=== PATIENT | female | born 1980 | race African-American/Black ===

== ENCOUNTER 2020-05-31 11:46 | Outpatient (CLI) | payer OTHER, SELFPAY ==
--- NOTE | ~2020-05-31 | CT_ITS ---
EXAMINATION: CT sinus wo con DATE: 05/31/2020 12:00 INDICATION: Chronic sinusitis. Dizziness. TECHNIQUE: Computed tomography (CT) of the paranasal sinuses was performed without intravenous contra st. The dose-length product was 325.13 mGy-cm. Automated exposure control and iterative reconstructio n technique were employed. COMPARISON: No prior studies for comparison. FINDINGS: There is complete opacification of the right maxillary sinus with occlusion of the ostiomea devaughn unit. No significant nasal septal deviation. Mild mucosal thickening of the right frontal and ant erior ethmoid air cells. No mastoids are pneumatized. There is defect involving the occipital bone, p ossibly surgical craniectomy defect. Correlate clinically. IMPRESSION: 1. Moderate sinusitis primarily involving the right maxillary sinus with occlusion of the right ostio meatal unit. Reviewed, dictated and finalized at location A. IMPRESSION: 1. Moderate sinusitis primarily involving the right maxillary sinus with occlus ion of the right ostiomeatal unit.
== END 2020-05-31 11:47 ==
PROVIDERS: Visit Provider Otolaryngology
DX: R42 Dizziness and giddiness (principal); J32.4 Chronic pansinusitis; J32.9 Chronic sinusitis, unspecified
CPT/HCPCS: 70486

== ENCOUNTER 2021-10-16 12:54 | Inpatient (IN) | payer OTHER, SELFPAY ==
--- NOTE | ~2021-10-16 | CT_ITS ---
EXAMINATION: CTA chest PE protocol DATE: 10/17/2021 14:59 INDICATION: Tachycardia. TECHNIQUE: Computed tomography angiography (CTA) of the chest was performed with 100 mL Omnipaque-350 intravenous contrast timed to evaluate the pulmonary arteries. Coronal maximum intensity projection 3D-reconstructions were created by the technologist. Automated exposure control and iterative reconst ruction technique were employed. The dose-length product was 256.17 mGy-cm. COMPARISON: None. FINDINGS: The lungs demonstrate mild atelectasis with a dependent predominance. No pleural effusion. Cardiomegaly is noted. No pericardial effusion. There is no pulmonary embolus. The gallbladder is nor mal in size. High attenuation material in the gallbladder may be sludge or stones. There is mild thor acic spondylosis. IMPRESSION: 1. No pulmonary embolus. 2. Cardiomegaly. Reviewed, dictated and finalized at location E. ICATOR FOAM RUBBER
--- NOTE | ~2021-10-16 | CT_ITS ---
EXAMINATION: CTA brain carotid EXAM DATE: 10/16/2021 18:55 INDICATION: headache, r/o aneurysm . TECHNIQUE: Spiral CTA of the carotid arteries was performed with intravenous injection 100 cc of Om nipaque 350. Axial, coronal, sagittal reformatted images reviewed. Additional reformatted images cre ated on dedicated 3-D workstation. NASCET comparable standard used to assess the degree of arterial stenosis. Spiral CT angiogram cerebral arteries performed with the same intravenous injection of con trast. Source images of the brain CTA transferred to dedicated workstation for 3-D rotational image c reation. Coronal, sagittal maximum intensity pixel images also reviewed. The dose-length product (D LP) for this examination was 1014.97 mGy-cm. The exposure was tailored according to patient size, a nd iterative reconstruction (ASIR) was used as additional dose reduction technique. Correlation is ma de to noncontrast head CT same date.. FINDINGS: No carotid plaque, 0% stenosis bilaterally. Left vertebral artery is dominant. There is no carotid or vertebral basilar arterial dissection or fibromuscular dysplasia. There are no cerebral a rtery aneurysms. There is symmetric cerebral artery arborization. The sagittal, transverse and sigmoi d sinuses enhance normally, no venous sinus thrombosis. Internal cerebral veins also enhance normally . Incidental Findings: Old small right subinsular, left cerebellar infarctions. Left suboccipital crani ectomy. IMPRESSION: 1. No acute carotid or intracranial findings. No aneurysm. 2. Bilateral carotid 0% stenosis. Reviewed, dictated and finalized at location . ROAD POLICE OFFICER
--- NOTE | ~2021-10-16 | MR_ITS ---
EXAMINATION: MR brain/brain stem wo con EXAM DATE: 10/17/2021 13:03 INDICATION: R/o CVA, Hx ischemic CVA tPA caused hemorrhagic. TECHNIQUE: Magnetic resonance imaging (MRI) of the brain/brain stem obtained without contrast. Stephanie al T1, axial diffusion, gradient echo (T2*), T1, T2, FLAIR sequences obtained. Correlation is made t o CT scans from yesterday. FINDINGS: There is small region of restricted diffusion in the right cerebellar hemisphere measuring about 5 x 10 mm, consistent with acute infarction. There is small to moderate-sized region of left ce rebellar encephalomalacia with overlying craniectomy defect. Other much smaller left cerebellar infar ctions. There is old small to moderate-sized right subinsular infarction. There is no acute hemorrhage seen on the T2*, a susceptibility sensitive sequence. Flow voids are see n in the cerebral arteries on the T2 weighted sequences consistent with their expected patency. Left vertebral artery is dominant. No obstructive hydrocephalus. There is moderate right maxillary sinus m ucoperiosteal thickening. IMPRESSION: 1. Small right cerebellar signal abnormality most likely acute infarction. 2. Left suboccipital craniectomy with underlying left cerebellar encephalomalacia. 3. Old infarctions. Reviewed, dictated and finalized at location B. BRIDGE OPERATOR IMPRESSION: 1. Small right cerebellar signal abnormality most likely acute infarction. 2. Left suboccipital craniectomy with underlying left cerebellar encephalomala kimber. 3. Old infarctions.
--- NOTE | ~2021-10-16 | CT_ITS ---
EXAMINATION: CT brain wo con EXAM DATE: 10/16/2021 17:10 INDICATION: neuro symptoms, prev CVA . TECHNIQUE: Spiral CT of the head was performed without contrast. Axial, coronal and sagittal images were reviewed. The dose-length product (DLP) for this examination was 605.33 mGy-cm. The exposure w as tailored according to patient size, and iterative reconstruction (ASIR) was used as additional dos e reduction technique. There is no prior study for comparison. FINDINGS: Small old left cerebellar infarction. Small old right subinsular infarction. There is no ac [place] intraparenchymal hemorrhage. No evidence of intraparenchymal brain mass lesion. No evidence of acute infarction. There is no mass effect or midline shift. The ventricles are normal in size. The re are no extra-axial collections. There are no acute calvarial fractures. The orbits are unremarkab le. Soft tissue is unremarkable. The visualized sinuses and mastoid air cells are well aerated. IMPRESSION: 1. Small old left cerebellar and right subinsular infarctions. 2. No acute findings. Reviewed, dictated and finalized at location G. AL MAKER
--- NOTE | ~2021-10-16 | US_ITS ---
EXAMINATION: US venous doppler [facility] DATE: 10/17/2021 17:34 INDICATION: Tachycardia. TECHNIQUE: Grayscale ultrasound images without and with compression and Doppler ultrasound images of the bilateral lower extremity veins were obtained. COMPARISON: None. FINDINGS: The visualized portions of right common femoral vein, profunda (deep) femoral vein, femoral vein, pop liteal vein, peroneal veins, posterior tibial veins, and greater saphenous vein outflow are patent. The visualized portions of left common femoral vein, profunda femoral vein, femoral vein, popliteal v ein, peroneal veins, posterior tibial veins, and greater saphenous vein outflow are patent. IMPRESSION: 1. No deep venous thrombosis. Reviewed, dictated and finalized at location E. AGE ENGINEER
[2021-10-16 12:59] VITALS: BP 131/92; PULSE 96; RESP 16; O2SAT 100
[2021-10-16 16:01] VITALS: BP 133/90; PULSE 100; RESP 17; TEMP 36.6; O2SAT 97
--- NOTE | 2021-10-16 16:38 | ECG_ITS ---
Measurements Intervals [place] Rate: 98 P: 55 MS: 165 QRS: 11 QRSD: 93 T: 14 QT: 325 QTc: 416 Interpretive Statements SINUS RHYTHM INCOMPLETE RIGHT BUNDLE BRANCH BLOCK LOW QRS VOLTAGE IN PRECORDIAL LEADS BORDERLINE T WAVE ABNORMALITY- INFERIOR LEADS BORDERLINE ECG Electronically Signed On 10-17-2021 16:42:19 BOAT TESTER by Samuel Stover D.O.
--- NOTE | 2021-10-16 16:49 | PC.NURSE ---
Pt notes CVA history 10 years old. Gets frequent migraines since then but normally is resolved with medication. She never has the ringing in her ears or feeling faint. Pt noted her right arm started moving on its own as she was being brought back to triage.
[2021-10-16 16:59] LABS: Basophils Percent Auto 0.6 % (0.2-1.2); Eosinophils Absolute Auto 0.3 K/mm3 (0-0.3); Hematocrit 35.3 % (37.0-47.0); Immature Granulocyte Absolute 0.01 K/mm3 (0.00-0.031); Immature Granulocyte Percent A 0.2 % (0-0.5); Lymphocytes Absolute Auto 1.49 K/mm3 (0.9-3.2); Lymphocytes Percent Auto 22.7 % (18.3-44.2); Mean Corpuscular HGB Conc 31.2 g/dl (32-36); Mean Corpuscular Hemoglobin 25.7 pg (26-34); Mean Corpuscular Volume 82.5 fl (80-100); Mean Platelet Volume 9.2 fl (7.4-10.4); Monocytes Absolute Auto 0.4 K/mm3 (0.1-0.6); Monocytes Percent Auto 6.3 % (2.6-8.5); Neutrophils Absolute Auto 4.3 K/mm3 (1.3-6.7); Neutrophils Percent Auto 66.2 % (45.5-73.1); Platelet Count Result 242 k/mm3 (150-375); Red Blood Count 4.28 M/mm3 (4.2-5.4); Red Cell Distribution Width 16.5 % (11.5-14.5); White Blood Count 6.6 K/mm3 (4.5-10.0)
[2021-10-16 17:08] LABS: Alanine Aminotransferase 12 U/L (4-35); Alkaline Phosphatase 74 U/L (38-126); Anion Gap 7 mmol/L (8-16); Aspartate Amino Transferase 21 U/L (14-36); Bilirubin,Total 0.5 mg/dL (0.2-1.3); Blood Urea Nitrogen 6 mg/dL (7-17); Calcium 8.9 mg/dL (8.4-10.2); Carbon Dioxide 25 mmol/L (22-30); Chloride 104 mmol/L (98-107); Estimated CRCL calculation 104 ml/min; Estimated Glomerular Filt Rate > 60; Glucose 93 mg/dL (65-110); Potassium 3.4 mmol/L (3.4-5.0); Sodium 136 mmol/L (137-145)
[2021-10-16] MEDS: METOCLOPRAMIDE HCL INJ 10 MG/2 ML VIAL IV PUSH (17:34)
[2021-10-16] MEDS: SODIUM CHLORIDE 0.9% IV 1,000 ML 999 ML IV CONT (17:34)
[2021-10-16] MEDS: KETOROLAC 30 MG/ML VIAL (*BKC) IV PUSH (17:34)
[2021-10-16] MEDS: diphenhydrAMINE HCl INJ 50 MG/ML VIAL 25 MG IV PUSH (17:34)
--- NOTE | 2021-10-16 17:51 | ED.GENADULT ---
HPI - General Adult General Chief complaint: Headache Stated complaint: HEADACHE Time Seen by Provider: 10/16/21 16:47 Source: patient History of Present Illness HPI narrative: Patient is a 41 y/o female complaining right sided headache starting earlier today. She descries her pain sharp and rates it as 5/10. There is no alleviating or exacerbating factor. She has no neck pain, vomiting or fever. She has no focal weakness or numbness. She had some uncontrollable shaking or right arm today. She also hears ringing in ear. Of note, she had brain surgery for hemorrhagic transformation of stroke following tPA about 10 years ago. Related Data Home Medications Medication Instructions Recorded Confirmed amitriptyline 25 mg PO HS 10/16/21 10/16/21 apixaban [Eliquis] 5 mg PO DAILY 10/16/21 10/16/21 cetirizine 10 mg PO DAILY 10/16/21 10/16/21 diphenhydramine HCl [Banophen] 25 mg PO PRN PRN 10/16/21 10/16/21 fluticasone propionate 1 spray INTRANASAL PRN PRN 10/16/21 10/16/21 prochlorperazine maleate 10 mg PO PRN PRN 10/16/21 10/16/21 ubrogepant [Ubrelvy] 50 mg PO PRN PRN 10/16/21 10/16/21 Allergies Allergy/AdvReac Type Severity Reaction Status Date / Time atorvastatin Allergy Unknown Verified 10/16/21 21:18 tramadol Allergy Unknown Verified 10/16/21 21:18 Review of Systems Constitutional: Constitutional: Denies chills, Denies fever(s), Reports headache(s) and Denies weakness Eyes: Eyes: Denies blurry vision ENT: Reports headache(s), Denies neck pain and Reports tinnitus Cardiovascular: Cardiovascular: Denies chest pain and Denies dyspnea Respiratory: Respiratory: Denies cough and Denies dyspnea Gastrointestinal: Gastrointestinal: Denies abdominal pain, Denies diarrhea, Denies nausea and Denies vomiting Genitourinary: Genitourinary: Denies hematuria and Denies dysuria Musculoskeletal: Musculoskeletal: Denies back pain and Denies neck pain Neurologic: Reports headache(s), Reports seizure-like activity and Denies weakness PMF Past Medical History Medical History Asthma Chronic anemia Depression with anxiety Ischemic stroke (2011) At age 31 attributed to PFO (loop recorder ruled out cardiac dysrhythmia) status post tPA with hemorrhagic conversion requiring craniotomy. Migraine Polycystic ovarian syndrome Pulmonary embolism Surgical History Surgical History History of craniotomy (2011) History of dilation and curettage History of hernia repair History of loop recorder Status post explantation in 2019. Family History Family History Grandparent Cancer Other Breast cancer Mother Diabetes mellitus Sibling High cholesterol Father High cholesterol Social History Social History Social History: Surrogate decision maker: Mary Lee, mother. Code status: Full code. Smoking status: Never smoker Alcohol intake: never Substance use: never Additional living arrangements comments: The patient lives in [place] Exam Const: General: no acute distress and well developed Orientation/consciousness: oriented to person, oriented to place, oriented to time and patient oriented x3 HENMT: Head: normocephalic Ears: external ears normal General nose exam: Normal external nose present Eyes: General: appearance normal, both eyes and all related structures Conjunctivae: conjunctivae normal Neck: Neck: normal visual inspection and full ROM Chest: Chest palpation & inspection: normal inspection of the chest and no tenderness Resp: Effort & Inspection: normal respiratory effort Auscultation: clear to auscultation bilaterally Cardio: Rate: regular rate Rhythm: regular rhythm GI: GI Palp: No abdominal tenderness and Yes Soft to palpation Skin: General skin exam: normal color and turgor normal Ne
--- NOTE | 2021-10-16 18:30 | PM.IMHP ---
H&P: HPI History of Present Illness Date/Time: 10/16/21 18:30 Chief Complaint: Headache and ringing in ear. Narrative: This is a pleasant 41-year-old female with history of migraines, ischemic stroke status post tPA with hemorrhagic conversion requiring craniotomy, patent foramen ovale, and pulmonary embolism who presented to the emergency department for evaluation of headache and ringing in ear. While in the shower this morning she developed a right sided headache, not necessarily unusual for her given her history of migraines. The headache was not bad enough for her to take her abortive medication and she went to work. At around 08:00 her headache became worse and she developed tinnitus in the left ear with lightheadedness and dizziness. She then tried to use her phone to text someone and she had a difficult time entering her password, as though her fingers were not doing what she wanted them to do. On arrival to the emergency department she then had a brief episode of uncontrollable tremors in her right arm. The tremors were self-limiting and have not recurred and she has never had similar symptoms. She still has the tinnitus and a mild headache but is improved after receiving a cocktail of ketorolac, metoclopramide, and diphenhydramine on arrival to the ER. She denies vertigo, focal weakness, paresthesias, visual changes, sinus congestion, fever, chills, sweats, facial droop, dysarthria, dysphagia, chest pain, pleuritic pain, palpitation, nausea, and vomiting. She has not had any recent illnesses or head trauma. No history of seizure. Review of Systems Review of Systems: Twelve systems were reviewed and are negative except for as per HPI. [facility] Past Medical History Medical History (Updated 10/16/21 @ 23:22 by Claudine Olson PA-C) Asthma Chronic anemia Depression with anxiety Ischemic stroke (2011) At age 31 attributed to PFO (loop recorder ruled out cardiac dysrhythmia) status post tPA with hemorrhagic conversion requiring craniotomy. Migraine Polycystic ovarian syndrome Pulmonary embolism Surgical History Surgical History History of craniotomy (2011) History of dilation and curettage History of hernia repair History of loop recorder Status post explantation in 2019. Family History Family History Grandparent Cancer Other Breast cancer Mother Diabetes mellitus Sibling High cholesterol Father High cholesterol Social History Social History (Updated 10/16/21 @ 23:19 by Claudine Olson PA-C) Social History: Surrogate decision maker: Mary Lee, mother. Code status: Full code. Smoking status: Never smoker Alcohol intake: never Substance use: never Additional living arrangements comments: The patient lives in [facility] Medications and Allergies Home Medications Medication Instructions Recorded Confirmed Type amitriptyline 25 mg PO HS 10/16/21 10/16/21 History apixaban [Eliquis] 5 mg PO DAILY 10/16/21 10/16/21 History cetirizine 10 mg PO DAILY 10/16/21 10/16/21 History diphenhydramine HCl [Banophen] 25 mg PO PRN PRN 10/16/21 10/16/21 History fluticasone propionate 1 spray INTRANASAL PRN PRN 10/16/21 10/16/21 History prochlorperazine maleate 10 mg PO PRN PRN 10/16/21 10/16/21 History ubrogepant [Ubrelvy] 50 mg PO PRN PRN 10/16/21 10/16/21 History Allergies Allergy/AdvReac Type Severity Reaction Status Date / Time atorvastatin Allergy Unknown Verified 10/16/21 21:18 tramadol Allergy Unknown Verified 10/16/21 21:18 Vital Signs Vital Signs - 24 hr 10/16/21 12:59 10/16/21 16:01 10/16/21 20:46 Temperature 97.9 F 98.0 F Pulse Rate 96 100 94 Respiratory Rate 16 17 17 Blood Pressure 131/92 H 133/90 126/93 H Pulse Oximetry 100 97 97 10/16/21 21:13 Temperature 97.5 F L Pulse Rate 87 Respiratory Rate 18 Blood Pressure 111/71 Pulse Oximetry 99
[2021-10-16 19:38] LABS: SARS-CoV-2 RNA PCR Negative
[2021-10-16 20:46] VITALS: BP 126/93; PULSE 94; RESP 17; TEMP 36.7; O2SAT 97
--- NOTE | 2021-10-16 21:05 | ADMGEN ---
This patient, Mary Lozano, was admitted to Medical Room 348-01. Patient/family oriented to hospital policies and general routines including ID bracelet, bed and alarms, visiting hours, pain management, procedures, bathroom and other care routines, personal items, smoking policy, room service/diet, and visiting hours. Information on how to activate the Rapid Response Team has been discussed. Patient/Family are encouraged to report perceived risks to care and to ask questions if they do not understand what they are told or what they should do.
[2021-10-16 21:13] VITALS: BP 111/71; PULSE 87; RESP 18; TEMP 36.4; O2SAT 99; BMI 29.3
[2021-10-17] VITALS (15 sets, daily range): BP systolic 119–138; BP diastolic 74–91; PULSE 79–108; RESP 14–19; TEMP 36.4; O2SAT 97–100
[2021-10-17] MEDS: AMITRIPTYLINE HCL 25 MG TABLET PO ×2 (00:05→20:09)
[2021-10-17 01:58] LABS: Magnesium 1.9 mg/dL (1.6-2.3)
[2021-10-17 02:28] LABS: Iron 37 ug/dL (37-170)
[2021-10-17 02:37] LABS: Percent Iron Saturation 11 % (20-50)
[2021-10-17 03:05] LABS: Folic Acid 8.4 ng/mL (2.76->20)
[2021-10-17] MEDS: APIXABAN 5 MG TABLET PO ×2 (09:16→20:08)
[2021-10-17] MEDS: FLUTICASONE PROPIONATE 0.05% NA SPR 16 GM BTL (*BKC) 1 SPRAY NASAL ×2 (09:16→20:07)
[2021-10-17] MEDS: LORATADINE 10 MG TABLET PO (09:16)
--- NOTE | 2021-10-17 09:37 | WPDNEUROLOGY ---
Neurology EEG Report General Information Date of Study: 10/17/21 TEST eeg DIAGNOSIS Seizures CONDITION OF RECORDING awake and drowsy EEG NUMBER [id number] CLINICAL HISTORY patient came in to emergency room yesterday for migraine headaches and while in the emergency room her right upper extremity started shaking which lasted for about 2 minutes. Has no history of seizures in the past. EEG DESCRIPTION Whole record consists of low-voltage 15 to 21 hertz per 2nd beta during wakefulness and drowsiness with intermittent eye movement artifacts. Hyperventilation not done. Photic stimulation not done. Non paroxysmal. Nonfocal. Nonlateralizing. IMPRESSION No significant abnormalities noted in this low voltage fast record ,clinical correlation recommended
[2021-10-17 10:03] LABS: Hematocrit 32.2 % (37.0-47.0); Hemoglobin 10.1 g/dL (12.0-15.0)
[2021-10-17 10:20] LABS: Anion Gap 4 mmol/L (8-16); Blood Urea Nitrogen 8 mg/dL (7-17); Calcium 8.1 mg/dL (8.4-10.2); Carbon Dioxide 28 mmol/L (22-30); Chloride 103 mmol/L (98-107); Estimated CRCL calculation 105 ml/min; Estimated Glomerular Filt Rate > 60; Glucose 139 mg/dL (65-110); Magnesium 1.8 mg/dL (1.6-2.3); Potassium 3.5 mmol/L (3.4-5.0); Sodium 135 mmol/L (137-145)
--- NOTE | 2021-10-17 10:42 | WPDNEURCNPN ---
Assessment and Plan Additional Plan migraine with rather complicated history in the past, all the studies up until now are negative for the new process MRI of the brain is awake Consult date: 10/17/21 HPI: Mary Lozano is a 41 year old female admitted to the hospital for the complaints of headaches with ringing in her ears in addition to the ongoing history of 1. Migraine 2. Ischemic stroke in the past requiring tPA with subsequent hemorrhagic conversion requiring craniotomy,3 patent foramen ovale,4 pulmonary embolism. As per the information available while in the shower in the morning she developed right-sided headache not necessarily unusual for her given history of migraine she did not take any abortive medication but by 8:00 a.m. the headaches became worse she developed tinnitus in the left ear along with the dizziness and lightheadedness and when she was in the emergency room she had uncontrollable tremors of the right upper extremity for very brief period, she continued to complain of tinnitus and headache requiring the cocktail of medications she does have ongoing history of bronchial asthma, chronic anemia as well and polycystic ovarian syndrome she is a never smoker or drinker and her outpatient medications include Eliquis 5 mg daily in addition to amitriptyline 25 mg daily and ubrelvy 50 mg p.r.n. for the migraine headaches, evaluation includes the negative CT scan of the head except the small old left cerebellar and right sub insular infarction, negative CT of the head with bilateral 0% stenosis of the carotid and also no aneurysm and routine lab normal including the SARS-CoV-2 it Review of Systems Review of Systems: All systems reviewed & are unremarkable except as noted in HPI and below PMFSH Past Medical History Medical History Asthma Chronic anemia Depression with anxiety Ischemic stroke (2011) At age 31 attributed to PFO (loop recorder ruled out cardiac dysrhythmia) status post tPA with hemorrhagic conversion requiring craniotomy. Migraine Polycystic ovarian syndrome Pulmonary embolism Surgical History Surgical History History of craniotomy (2011) History of dilation and curettage History of hernia repair History of loop recorder Status post explantation in 2019. Family History Family History Grandparent Cancer Other Breast cancer Mother Diabetes mellitus Sibling High cholesterol Father High cholesterol Social History Social History Social History: Surrogate decision maker: Mary Lee, mother. Code status: Full code. Smoking status: Never smoker Alcohol intake: never Substance use: never Additional living arrangements comments: The patient lives in [facility] Medications and Allergies Home Medications Medication Instructions Recorded Confirmed Type amitriptyline 25 mg PO HS 10/16/21 10/16/21 History apixaban [Eliquis] 5 mg PO DAILY 10/16/21 10/16/21 History cetirizine 10 mg PO DAILY 10/16/21 10/16/21 History diphenhydramine HCl [Banophen] 25 mg PO PRN PRN 10/16/21 10/16/21 History fluticasone propionate 1 spray INTRANASAL PRN PRN 10/16/21 10/16/21 History prochlorperazine maleate 10 mg PO PRN PRN 10/16/21 10/16/21 History ubrogepant [Ubrelvy] 50 mg PO PRN PRN 10/16/21 10/16/21 History Allergies Allergy/AdvReac Type Severity Reaction Status Date / Time atorvastatin Allergy Unknown Verified 10/16/21 21:18 tramadol Allergy Unknown Verified 10/16/21 21:18 Vital Signs Vital Signs - 24 hr 10/16/21 12:59 10/16/21 16:01 10/16/21 20:46 Temperature 36.6 C 36.7 C Pulse Rate 96 100 94 Respiratory Rate 16 17 17 Blood Pressure 131/92 H 133/90 126/93 H Pulse Oximetry 100 97 97 10/16/21 21:13 10/17/21 00:00 10/17/21 04:00 Temperature 36.4 C L Pulse Rate 87
[2021-10-17] MEDS: POTASSIUM CHLORIDE 20 MEQ TABLET 40 MEQ PO (13:12)
--- NOTE | 2021-10-17 13:17 | PM.IMPN ---
Progress Note: A&P Assessment and Plan (1) Migraine headache: Code(s): G43.909 - Migraine, unspecified, not intractable, without status migrainosus Status: Acute Assessment and Plan: Symptoms may very well be related to an atypical migraine. Headache is improved with migraine cocktail as detailed in HPI. She denies anymore migraine symptoms or tinnitis at this time. She was concerned because she never had similar symptoms before. She sees a neurologist at [facility] for her stroke and migraine history. She last did a virtual visit about 1 month ago and no medication adjustments were made at that time. EEG was completed for right arm tremor in ER which showed No significant abnormalities noted in this low voltage fast record, clinical correlation recommended. MRI will be obtained given her history of ischemic stroke and her not being complaint with her home medications even her anticoagulation, Eliquis. Also, concerned about her sinus tachycardia. Patient states she was up walking with therapy she felt symptomatic with lightheadedness, faint and abnormality with her heart. She denied fluttering or palpations. On Tele she was found to have what appeared to be Sinus Tachycardia up to 150 bpm. Since she has been noncompliant with her Eliquis, will order Stat D-dimer. If normal she does not have PE and will then complete further work up with an Echocardiogram and Cardiology consultation to rule out acute arrhythmia and structural abnormality to her heart. If her D-dimer is positive then will get CTA Chest [address] last [address] with contrast was completed (10/16/21 at 1855) to rule out acute PE and get an echocardiogram to look further at her heart. Will order Orthostatic vital signs. Told nurse if she becomes tachycardic again to try and get a STAT EKG for better visualization of her heart rhythm. Continue monitoring. (2) Sinus tachycardia: Code(s): R00.0 - Tachycardia, unspecified Status: Acute Assessment and Plan: See above. (3) Limb tremor: Code(s): R25.1 - Tremor, unspecified Status: Acute Assessment and Plan: Patient reports uncontrolled right upper extremity tremor which was self-limiting. She states with her last migraine about 3-4 weeks ago she had full body tremors for a short amount of time and was self limiting Neurology evaluated and did not have any concerns at this time and EEG was negative for seizure activity. Will continue monitoring for more episodes. May talk to Neurology to see if there is a possibility of a partial seizure as the cause and if she would need any medications. (4) Left-sided tinnitus: Code(s): H93.12 - Tinnitus, left ear Status: Acute Assessment and Plan: May very well be related to migraine headache given rapid onset. Resolved at this time. Getting MRI to rule out acute CVA as cause Continue monitoring (5) Chronic anemia: Code(s): D64.9 - Anemia, unspecified Status: Acute Assessment and Plan: Reports chronic anemia and being day #2 of her menstrual cycle. Normocytic anemia with Hgb 10/Hct 32% Iron panel shows slightly low % Saturation and low normal ferritin 16 could be due to acute menstrual cycle bleeding. May just recheck CBC when the patient is not on her menstrual cycle and have her follow up with PCP. Normal Folate, B12 and TSH. Continue monitoring. Transfuse if <7. Time Spent With Patient Time with patient: 25 - 35 minutes Subjective Date/time seen: 10/17/21 13:17 Interval history: Date of Service 10/17/21: Patient states she is feeling better right now because she is laying in bed. She was up earlier and she felt an abnormality with her heart, lightheadedness and when she sat down to rest it improved. She reports improvement of her migraine and tinnitis at this time. She had some tremors in the ER to her right side and reported during her last migraine she had whole body tylor
[2021-10-17 13:40] LABS: D Dimer 2.46 ug/mL (<0.48)
[2021-10-17] MEDS: ACETAMINOPHEN 325 MG TABLET 650 MG PO ×2 (14:13→20:14)
[2021-10-17] MEDS: diphenhydrAMINE HCl CAP 25 MG CAPSULE PO (20:18)
[2021-10-17] MEDS: PROCHLORPERAZINE MALEATE 5 MG TABLET 10 MG PO (20:18)
[2021-10-18] VITALS (12 sets, daily range): BP systolic 106–133; BP diastolic 66–82; PULSE 82–109; RESP 18–19; TEMP 36.1–36.4; O2SAT 98–99
--- NOTE | 2021-10-18 | ECHO_ITS ---
Patient Info Name: Mary Lozano Age: 41 years : 1980 Gender: Female Ht: 64 in Wt: 170 lbs BSA: 1.89 m2 HR: 98 bpm BP: 106 / 66 mmHg Heart Rhythm: Sinus Rhythm Technical Quality: Good Exam Date: 10/18/2021 10:22 AM Exam Location: [facility] Patient Status: Outpatient Admit Date: 10/16/2021 Staff Ordering Physician: Alyssa Alcazar PA-C Elementary Education Tutor: Esteban Ibarra RDCS, RT Attending Provider: Cecilia Farnsworth PA-C Referring Physician: Inge HEATON; Exam Type: CA echo doppler w bubble study Study Info Indications R00.0 - Tachycardia, unspecified Complete two-dimensional, color flow and Doppler transthoracic echocardiogram is performed with agitated saline. Strain analysis performed. Contrast/Agitated Saline Contrast/Ag. Saline: Agitated Saline Amount: 20.00 ml Existing IV Access: Yes IV Access Condition: patent with no signs of infiltration Summary 1. Complete two-dimensional, color flow and Doppler transthoracic echocardiogram is performed with agitated saline. 2. Strain analysis performed. 3. Left ventricular systolic function is normal, estimated at 60-65%. 4. There is mildly increased left ventricular wall thickness. 5. The left ventricular diastolic function is normal. 6. Global longitudinal strain is normal at -18 %. 7. Left atrial chamber dimension is mildly enlarged. 8. PFO vs. small ASD visualized by color flow and agitated saline imaging. 9. There is mild mitral valve regurgitation. 10. There is mild tricuspid valve regurgitation. 11. There is mild pulmonic regurgitation. 12. Left ventricular chamber dimension is normal. Left Ventricle Left ventricular chamber dimension is normal. Left ventricular systolic function is normal, estimated at 60-65%. There is mildly increased left ventricular wall thickness. The left ventricular diastolic function is normal. Global longitudinal strain is normal at -18 %. Right Ventricle Right ventricular chamber dimension is normal. Right ventricular systolic function is normal. Left Atria Left atrial chamber dimension is mildly enlarged. Right Atria Right atrial chamber dimension is normal. Atrial Septum PFO vs. small ASD visualized by color flow and agitated saline imaging. Aortic Valve The aortic valve is trileaflet. There is mild aortic valve sclerosis. There is no aortic valve stenosis. There is trace aortic valve regurgitation. Pulmonic Valve The pulmonic valve is normal. There is no pulmonic valve stenosis. There is mild pulmonic regurgitation. Mitral Valve The mitral valve has normal leaflets. There is no mitral valve stenosis. There is mild mitral valve regurgitation. Tricuspid Valve The tricuspid valve leaflets are normal. There is no significant tricuspid valve stenosis. There is mild tricuspid valve regurgitation. Pericardium/Pleural The pericardium appears normal. There is trivial pericardial effusion. Inferior Vena Cava Normal inferior vena cava with >50% collapse upon inspiration consistent with normal right atrial pressure, 5 mmHg. Aorta The aortic root size at the sinus of Valsalva is normal. Left Ventricular Outflow Tract Name Value Normal LVOT 2D
[2021-10-18 06:32] LABS: Hematocrit 29.8 % (37.0-47.0); Hemoglobin 9.3 g/dL (12.0-15.0); Mean Corpuscular HGB Conc 31.2 g/dl (32-36); Mean Corpuscular Hemoglobin 25.2 pg (26-34); Mean Corpuscular Volume 80.8 fl (80-100); Mean Platelet Volume 9.4 fl (7.4-10.4); Platelet Count Result 224 k/mm3 (150-375); Red Blood Count 3.69 M/mm3 (4.2-5.4); Red Cell Distribution Width 16.4 % (11.5-14.5); White Blood Count 4.9 K/mm3 (4.5-10.0)
[2021-10-18 06:40] LABS: Anion Gap 1 mmol/L (8-16); Blood Urea Nitrogen 9 mg/dL (7-17); Carbon Dioxide 28 mmol/L (22-30); Chloride 105 mmol/L (98-107); Estimated CRCL calculation 108 ml/min; Estimated Glomerular Filt Rate > 60; Glucose 108 mg/dL (65-110); Magnesium 1.9 mg/dL (1.6-2.3); Potassium 3.9 mmol/L (3.4-5.0); Sodium 134 mmol/L (137-145)
[2021-10-18] MEDS: LORATADINE 10 MG TABLET PO (08:07)
[2021-10-18] MEDS: APIXABAN 5 MG TABLET PO ×2 (08:09→20:58)
[2021-10-18] MEDS: FLUTICASONE PROPIONATE 0.05% NA SPR 16 GM BTL (*BKC) 1 SPRAY NASAL ×2 (08:10→20:59)
[2021-10-18] MEDS: ACETAMINOPHEN 325 MG TABLET 650 MG PO ×2 (08:13→17:35)
--- NOTE | 2021-10-18 11:47 | PM.IMPN ---
Progress Note: A&P Assessment and Plan (1) Migraine headache: Code(s): G43.909 - Migraine, unspecified, not intractable, without status migrainosus <Cecilia Farnsworth PA-C - Last Filed: 10/18/21 12:02> Status: Acute <Cecilia Farnsworth PA-C - Last Filed: 10/18/21 12:02> Assessment and Plan: Symptoms may very well be related to an atypical migraine. Headache is improved with migraine cocktail as detailed in HPI. She denies anymore migraine symptoms or tinnitis at this time. She was concerned because she never had similar symptoms before. She sees a neurologist at [facility] for her stroke and migraine history. She last did a virtual visit about 1 month ago and no medication adjustments were made at that time. EEG was completed for right arm tremor in ER which showed No significant abnormalities noted in this low voltage fast record, clinical correlation recommended. She reports not being complaint with her home medications even her anticoagulation, Eliquis. MRI brain shows 1. Small right cerebellar signal abnormality most likely acute infarction. 2. Left suboccipital craniectomy with underlying left cerebellar encephalomalacia. 3. Old infarctions. Neurology consulted, appreciate additional recommendations Symptoms have resoled <Cecilia Farnsworth PA-C - Last Filed: 10/18/21 12:02> (2) Cerebellar stroke: Code(s): I63.9 - Cerebral infarction, unspecified <Cecilia Farnsworth PA-C - Last Filed: 10/18/21 12:02> Status: Acute <Cecilia Farnsworth PA-C - Last Filed: 10/18/21 12:02> Assessment and Plan: -see above -on eliquis -neurology consulted <Cecilia Farnsworth PA-C - Last Filed: 10/18/21 12:02> (3) Sinus tachycardia: Code(s): R00.0 - Tachycardia, unspecified <Cecilia Farnsworth PA-C - Last Filed: 10/18/21 12:02> Status: Acute <Cecilia Farnsworth PA-C - Last Filed: 10/18/21 12:02> Assessment and Plan: -apparently had episode 2 days ago up to 150 -no tachycardia noted on telemetry which was also reviewed by account manager relief VALVING MACHINE OPERATOR -positive d dimer but PE was ruled out by CTA -echo pending -will continue to monitor her on telemetry <Cecilia Farnsworth PA-C - Last Filed: 10/18/21 12:02> (4) Limb tremor: Code(s): R25.1 - Tremor, unspecified <Cecilia Farnsworth PA-C - Last Filed: 10/18/21 12:02> Status: Acute <Cecilia Farnsworth PA-C - Last Filed: 10/18/21 12:02> Assessment and Plan: -Patient reports uncontrolled right upper extremity tremor which was self-limiting. -She states with her last migraine about 3-4 weeks ago she had full body tremors for a short amount of time and was self limiting -Neurology consulted, see above <Cecilia Farnsworth PA-C - Last Filed: 10/18/21 12:02> (5) Left-sided tinnitus: Code(s): H93.12 - Tinnitus, left ear <Cecilia Farnsworth PA-C - Last Filed: 10/18/21 12:02> Status: Acute <Cecilia Farnsworth PA-C - Last Filed: 10/18/21 12:02> Assessment and Plan: -resolved -see above <Cecilia Farnsworth PA-C - Last Filed: 10/18/21 12:02> (6) Chronic anemia: Code(s): D64.9 - Anemia, unspecified <LONA Odonnell Last Filed: 10/18/21 12:02> Status: Acute <LONA Odonnell Last Filed: 10/18/21 12:02> Assessment and Plan: -Reports chronic anemia secondary to her menstrual cycle -Normocytic anemia with Hgb 10/Hct 32% -Iron panel shows slightly low % Saturation and low normal ferritin 16 could be due to acute menstrual cycle bleeding. May just recheck CBC when the patient is not on her menstrual cycle and have her follow up with PCP. -Normal Folate, B12 and TSH. -Continue monitoring. Transfuse if <7. <LONA Odonnell Last Filed: 10/18/21 12:02> Subjective Date/time seen: 10/18/21 11:47 <Cecilia Farnsworth
--- NOTE | 2021-10-18 12:41 | WPDNEUROPN ---
Progress Note: A&P Additional Plan 1.old and new stroke 2. PFO 3. Normal EEG at this time 4. Ongoing tremor intermittent with normal EEG plan is to follow up with the physician as an outpatiet. advised to be more compliant with the anticoagulation therapy because of underlying Parres Time Spent With Patient Time with patient: less than 15 minutes Subjective Date/time seen: 10/18/21 12:41 41 years old admitted to the hospital for the complaints of headache in addition to the ongoing history of 1. Migraine 2. Ischemic stroke in the past requiring tPA with hemorrhagic conversion requiring posterior craniotomy and 3. Foramina ovale and next pulmonary embolism, evaluation documented negative CT of the brain without aneurysm or territorial vascular involvement, brain MRI with small right cerebellar signal abnormality raising the possibility of acute infarction in addition to ongoing old infarctions as described, patient is on Eliquis and was emphasized today to be very regular because of the underlying problem Review of Systems Review of Systems: All systems reviewed & are unremarkable except as noted in HPI and below Exam Const: General: cooperative, healthy appearing, comfortable and no acute distress Orientation/consciousness: oriented to person, oriented to place, oriented to time and patient oriented x3 Limitations: no limitations HENMT: Head: normal to inspection Ears: hearing grossly normal bilaterally General nose exam: Normal external nose present Face and sinus: normal facial exam Eyes: General: appearance normal, both eyes and all related structures Resp: Effort & Inspection: able to speak in complete sentences Neuro: General: oriented to person, oriented to place and oriented to time Cranial nerves: Yes CN's II-XII intact bilaterally Cognition (Neuro): normal cognition Speech: normal speech Gait exam (Neuro): Normal gait present Motor exam (neuro): 5/5 motor strength present throughout Sensory Exam: normal sensation Deep tendon reflexes (DTR's): Right triceps reflex intensity grade: 1+, Left triceps reflex intensity grade: 1+, Rt Biceps (C5, C6): 1+, Left biceps reflex intensity grade: 1+, Right brachioradialis reflex intensity grade: 1+, Left brachioradialis reflex intensity grade: 1+, Right patellar reflex intensity grade: 1+, Left patellar reflex intensity grade: 1+, Right ankle reflex intensity grade: 1+ and Left ankle reflex intensity grade: 1+ Plantar Reflex Responses: downgoing: bilateral Coordination: [id number] test normal Objective Data Vital Signs Vital Signs: Vital Signs - 24 hr 10/17/21 13:30 10/17/21 13:35 10/17/21 13:40 Temperature Pulse Rate 98 96 99 Respiratory Rate Blood Pressure 120/74 123/85 125/86 Pulse Oximetry 10/17/21 13:41 10/17/21 16:32 10/17/21 20:04 Temperature 36.4 C Pulse Rate 98 99 102 H Respiratory Rate 14 Blood Pressure 120/74 Pulse Oximetry 100 10/17/21 20:09 10/17/21 21:49 10/17/21 22:06 Temperature 36.4 C L Pulse Rate 89 81 Respiratory Rate 16 18 19 Blood Pressure 138/91 H Pulse Oximetry 100 100 97 10/18/21 00:05 10/18/21 04:04 10/18/21 04:44 Temperature Pulse Rate 94 82 84 Respiratory Rate Blood Pressure Pulse Oximetry 10/18/21 05:46 10/18/21 07:35 10/18/21 08:00 Temperature 36.1 C L 36.3 C L Pulse Rate 87 87 90 Respiratory Rate 18 18 Blood Pressure 106/66 116/78 Pulse Oximetry 99 98 10/18/21 12:00 10/18/21 12:21 Temperature 36.4 C Pulse Rate 108 H 95 Respiratory Rate 18 Blood Pressure 109/67 Pulse Oximetry 98 Intake/Output Intake/Output: Intake & Output 10/15/21 10/16/21 10/17/21 10/18/21 23:59 23:59 23:59 23:59 Intake Total 1000 1000 900 Output Total 400 2400 400 Balance 600 -1400 500 Meds/Results Medications: Active Medications Generic Name Dose Route Start Last Admin Trade Name Freq PRN Reason Stop Dose Admin Acetaminophen 650 mg 10/17/21 13:44 10/18/21 08:13
--- NOTE | 2021-10-18 13:25 | PC.NURSE ---
On 10/18/21, the student, Bharti Cee, provided care and completed [facility] documentation on this patient. I have reviewed the student's documentation and agree with the findings.
--- NOTE | 2021-10-18 13:58 | PM.CNCAR ---
Assessment and Plan Assessment and plan (1) Cerebellar stroke: Code(s): I63.9 - Cerebral infarction, unspecified Status: Acute Assessment and Plan: It appears that this patient has now developed a 2nd cerebrovascular event. This time while on anticoagulation albeit while not completely compliant with her Eliquis dosing. My recommendation would be to have her PFO closed as an outpatient. She should follow-up with her primary telecommunication engineer Dr. Akhtar. Continue anticoagulation and encouraged compliance (2) Sinus tachycardia: Code(s): R00.0 - Tachycardia, unspecified Status: Acute Assessment and Plan: Previous arrhythmia workup was reportedly negative. Will review records from [place]. I do not see any complex arrhythmia at present. (3) Migraine headache: Code(s): G43.909 - Migraine, unspecified, not intractable, without status migrainosus Status: Acute Assessment and Plan: May be PFO related (4) PFO (patent foramen ovale): Code(s): Q21.1 - Atrial septal defect Status: Acute Assessment and Plan: Echo pending. Will review. As detailed above, continue full anticoagulation for now and recommend outpatient PFO closure. History of Present Illness History of Present Illness Consult date/time: 10/18/21 13:58 Requesting physician: Alyssa Alcazar PA-C Consult reason: Other (Tachycardia, PFO) Reason For Visit: headache, right arm shaking Narrative: Reason for consultation: Stroke, tachycardia, PFO Date of service 10/18/2021 Requesting provider: Alyssa Alcazar History: Patient is a 41-year-old female who has history stroke in the past. She received tPA at the age of 31 and she had hemorrhagic conversion requiring craniotomy. She was found have a PFO. She had a loop recorder placed at [place] several years ago. Reportedly no a arrhythmias were noted and they remove the device couple of years ago. She currently follows with Dr. Juan Akhtar at [facility]. In early 2020 she was short of breath and had some chest pain. She was found to have pulmonary emboli. She has been on anticoagulation since that time but she has not been always compliant with her anticoagulation. She presented to the hospital because a right-sided headache which became severe PH she also had some ringing in her ear. She also developed some tremors in her right arm and tried to tack someone had difficulty entering her password and had some clumsiness of her hand. She denies any recent chest pain, syncope, presyncope, paroxysmal nocturnal dyspnea, orthopnea, edema or palpitations. Workup including a MRI of the brain shows what is thought to be a new acute infarction involving the right cerebellum. While standing up working with therapy recently she had some tachycardia with heart rate up to 150s. Cardiology consultation was therefore requested for all of the above especially in the setting of a PFO. Review of Systems Review of Systems: All systems reviewed & are unremarkable except as noted in HPI and below Constitutional: Constitutional: Denies weakness Eyes: Eyes: Denies blurry vision ENT: Reports tinnitus Cardiovascular: Cardiovascular: Denies chest pain Respiratory: Respiratory: Denies dyspnea Gastrointestinal: Gastrointestinal: Denies abdominal pain Genitourinary: Genitourinary: Denies hematuria and Denies flank pain Musculoskeletal: Musculoskeletal: Denies back pain and Denies neck pain Integumentary/Breasts: Skin/Breast: Denies dry skin Neurologic: Denies headache(s) Psychiatric: Psychiatric: Denies anxiety Endocrine: Endocrine: Denies excessive sweating Hematologic/Lymphatic: Hematologic/Lymphatic: Denies easy bleeding Allergic/Immunologic: Allergic/Immunologic: Denies GI upset with certain foods PMFSH Past Medical History Medical History Asthma Chronic anemia Depression with anxiety Ischemic stroke
[2021-10-18] MEDS: AMITRIPTYLINE HCL 25 MG TABLET PO (20:58)
[2021-10-19] VITALS: PULSE 92
[2021-10-19 04:25] VITALS: PULSE 84
[2021-10-19 06:00] VITALS: BP 107/69; PULSE 81; RESP 18; TEMP 36; O2SAT 98
[2021-10-19 06:13] LABS: Basophils Percent Auto 0.6 % (0.2-1.2); Eosinophils Absolute Auto 0.5 K/mm3 (0-0.3); Eosinophils Percent Auto 10.8 % (0-4.4); Hematocrit 30.9 % (37.0-47.0); Hemoglobin 9.5 g/dL (12.0-15.0); Immature Granulocyte Absolute 0.01 K/mm3 (0.00-0.031); Immature Granulocyte Percent A 0.2 % (0-0.5); Lymphocytes Absolute Auto 1.91 K/mm3 (0.9-3.2); Lymphocytes Percent Auto 41.3 % (18.3-44.2); Mean Corpuscular HGB Conc 30.7 g/dl (32-36); Mean Corpuscular Hemoglobin 25.4 pg (26-34); Mean Corpuscular Volume 82.6 fl (80-100); Mean Platelet Volume 9.3 fl (7.4-10.4); Monocytes Absolute Auto 0.4 K/mm3 (0.1-0.6); Monocytes Percent Auto 8.2 % (2.6-8.5); Neutrophils Absolute Auto 1.8 K/mm3 (1.3-6.7); Neutrophils Percent Auto 38.9 % (45.5-73.1); Platelet Count Result 216 k/mm3 (150-375); Red Blood Count 3.74 M/mm3 (4.2-5.4); Red Cell Distribution Width 16.3 % (11.5-14.5); White Blood Count 4.6 K/mm3 (4.5-10.0)
[2021-10-19 06:30] LABS: Anion Gap 8 mmol/L (8-16); Blood Urea Nitrogen 8 mg/dL (7-17); Calcium 8.3 mg/dL (8.4-10.2); Carbon Dioxide 26 mmol/L (22-30); Chloride 103 mmol/L (98-107); Estimated CRCL calculation 92 ml/min; Estimated Glomerular Filt Rate > 60; Glucose 110 mg/dL (65-110); Potassium 3.8 mmol/L (3.4-5.0); Sodium 137 mmol/L (137-145)
[2021-10-19 08:00] VITALS: PULSE 96
[2021-10-19] MEDS: APIXABAN 5 MG TABLET PO (10:27)
[2021-10-19] MEDS: LORATADINE 10 MG TABLET PO (10:27)
[2021-10-19] MEDS: FLUTICASONE PROPIONATE 0.05% NA SPR 16 GM BTL (*BKC) 1 SPRAY NASAL (10:27)
--- NOTE | 2021-10-19 11:31 | PM.DS ---
DS: Admitting Diagnosis Discharge Date 10/19/21 Admitting Diagnosis migraine DS: Discharge Diagnosis Discharge Diagnosis (1) Migraine headache: Code(s): G43.909 - Migraine, unspecified, not intractable, without status migrainosus Status: Acute Assessment and Plan: -Some symptoms may very well be related to an atypical migraine. Headache is improved with migraine cocktail as detailed in HPI. She denies anymore migraine symptoms or tinnitis at this time. -She sees a neurologist at [facility] for her stroke and migraine history. She last did a virtual visit about 1 month ago and no medication adjustments were made at that time. EEG was completed for right arm tremor in ER which showed No significant abnormalities noted in this low voltage fast record, clinical correlation recommended. She reports not being complaint with her home medications even her anticoagulation, Eliquis. MRI brain shows 1. Small right cerebellar signal abnormality most likely acute infarction. 2. Left suboccipital craniectomy with underlying left cerebellar encephalomalacia. 3. Old infarctions. Neurology consulted who reviewed EEG and MRI, recommends stressing medication compliance and outpatient follow up (2) Cerebellar stroke: Code(s): I63.9 - Cerebral infarction, unspecified Status: Acute Assessment and Plan: -see above -on Eliquis but has been non compliant -known PFO noted again on echo -neurology consulted, she will follow up outpatient -discussed with patient multiple times the importance of medication compliance (3) PFO (patent foramen ovale): Code(s): Q21.1 - Atrial septal defect Status: Acute Assessment and Plan: -pt with known history -noted on echo which was reviewed by cardiology who recommends she get this repaired outpatient -had at length discussion with patient regarding compliance with eliquis and prompt follow up with her retail project merchandiser outpatient -d dimer positive but BLE venous dopplers and CTA negative -discussed with patient that it is imperative she get this repaired to avoid recurrent strokes (4) Sinus tachycardia: Code(s): R00.0 - Tachycardia, unspecified Status: Acute Assessment and Plan: -apparently had episode 3 days ago up to 150 -no tachycardia noted on telemetry which was also reviewed by retail project merchandiser -positive d dimer but PE was ruled out by CTA -echo reviewed by cardiology, does have PFO vs ASD which was known, she is aware this needs repaired (5) Chronic anemia: Code(s): D64.9 - Anemia, unspecified Status: Acute Assessment and Plan: -Reports chronic anemia secondary to her menstrual cycle -Normocytic anemia with Hgb 10/Hct 32% -Iron panel shows slightly low % Saturation and low normal ferritin 16 could be due to acute menstrual cycle bleeding. Will recheck CBC in 1 week when the patient is not on her menstrual cycle and have her follow up with OBGYN. -Normal Folate, B12 and TSH. DS: Summary Hospital Course Reason for hospitalization: 41-year-old female with history of migraines, ischemic stroke status post tPA with hemorrhagic conversion requiring craniotomy, patent foramen ovale, and pulmonary embolism, admitted to the hospital for migraine headache and found to have had a cerebellar stroke. Pt had admittedly been non compliant with her Eliquis. Please see HPI for further details. Hospital Course: Please see above for details of hospital course. Status at Discharge Cognitive/behavioral status at discharge: stable Functional status at discharge: independent ambulation Overall status at discharge: patient is progressing back to baseline Time Spent with Patient Time attestation: Total time spent providing and/or coordinating discharge services: 32 Time spent: Greater than 30 minutes Exam Narrative: General: NAD, non toxic Skin: warm, dry Neck: Full range of motion.
[2021-10-19 12:00] VITALS: PULSE 96
--- NOTE | 2021-10-19 13:26 | PM.PNCARD ---
Progress Note: A&P Assessment and Plan (1) Cerebellar stroke: Code(s): I63.9 - Cerebral infarction, unspecified Status: Acute Assessment and Plan: It appears that this patient has now developed a 2nd cerebrovascular event. This time while on anticoagulation albeit while not completely compliant with her Eliquis dosing. My recommendation would be to have her PFO closed as an outpatient. She should follow-up with her primary counter hand Dr. Akhtar. Continue anticoagulation and encouraged compliance (2) Sinus tachycardia: Code(s): R00.0 - Tachycardia, unspecified Status: Acute Assessment and Plan: Previous arrhythmia workup was reportedly negative. (3) Migraine headache: Code(s): G43.909 - Migraine, unspecified, not intractable, without status migrainosus Status: Acute Assessment and Plan: May be PFO related (4) PFO (patent foramen ovale): Code(s): Q21.1 - Atrial septal defect Status: Acute Assessment and Plan: ASD versus PFO. Needs closure. 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 I recommend cardiac MRI to be performed as an outpatient through his primary counter hand's office. I did discuss this with the patient and she verbalized understanding and is in agreement (5) Hypokalemia: Code(s): E87.6 - Hypokalemia Status: Acute Assessment and Plan: KCL 40 mg p.o. x1 Okay for discharge from my perspective Subjective Date/time seen: 10/19/21 13:26 Interval history: 41-year-old female with history of migraines, ischemic stroke status post tPA with hemorrhagic conversion requiring craniotomy, patent foramen ovale, and pulmonary embolism, admitted to the hospital for migraine headache. Pt had admittedly been non compliant with her Eliquis. Date of service 10/19/2021: From a cardiac perspective she is doing okay. No shortness of breath. Has some left-sided chest pain that is reproducible by pushing on it Review of Systems Review of Systems: All systems reviewed & are unremarkable except as noted in HPI and below Constitutional: Constitutional: Denies excessive sweating, Denies headache(s) and Denies weakness Eyes: Eyes: Denies blurry vision ENT: Denies headache(s), Denies neck pain and Reports tinnitus Cardiovascular: Cardiovascular: Denies chest pain and Denies dyspnea Respiratory: Respiratory: Denies dyspnea Gastrointestinal: Gastrointestinal: Denies abdominal pain Genitourinary: Genitourinary: Denies hematuria and Denies flank pain Musculoskeletal: Musculoskeletal: Denies back pain and Denies neck pain Integumentary/Breasts: Skin/Breast: Denies dry skin Neurologic: Denies headache(s) and Denies weakness Psychiatric: Psychiatric: Denies anxiety Endocrine: Endocrine: Denies excessive sweating Hematologic/Lymphatic: Hematologic/Lymphatic: Denies easy bleeding Allergic/Immunologic: Allergic/Immunologic: Denies GI upset with certain foods Exam Narrative: Alert oriented. Appears to be in no acute distress. Appears stated age Const: General: comfortable and no acute distress HENMT: General nose exam: Normal nares present Eyes: Sclera: sclerae normal Neck: Neck: supple and no JVD Chest: Other: reproducible chest wall pain to palpation Resp: Auscultation: clear to auscultation bilaterally Cardio: Rate: regular rate Rhythm: regular rhythm GI: Auscultation: normal bowel sounds Skin: General skin exam: normal color Neuro: Cognition (Neuro): normal cognition Speech: normal speech Extrem: General: normal to inspection and no edema Psych: Mental Status: mental status grossly normal Objective Data Vital Signs Vital Signs: Vital Signs - 24 hr 10/18/21 16:00 10/18/21 20:00 10/18/21 22:00 Temperature 36.4 C L Pulse Rate 90 109 H 93 Respiratory Rate 18 Blood Pressure 133/82 Pulse Oximetry 99 10/18/21 22:40 10/19/21 00:0
[2021-10-19] MEDS: POTASSIUM CHLORIDE 20 MEQ TABLET 40 MEQ PO (14:10)
== END 2021-10-19 14:29 | disposition home or self-care (01) | DRG 65 ==
LOC: ANHED 16:47 → ANH3MED 20:00
PROVIDERS: Physician Assistant; Admitting Provider Family Medicine; Emergency Provider Emergency Medicine; PCP Family Medicine; Visit Provider Internal Medicine
DX: I63.9 Cerebral infarction, unspecified (principal); Q21.1 Atrial septal defect; F41.8 Other specified anxiety disorders; Z20.822 Contact with and (suspected) exposure to COVID-19; J45.909 Unspecified asthma, uncomplicated; Z86.711 Personal history of pulmonary embolism; Z86.73 Personal history of transient ischemic attack (TIA), and cerebral infarction without residual deficits; R25.1 Tremor, unspecified; G43.909 Migraine, unspecified, not intractable, without status migrainosus; Z79.01 Long term (current) use of anticoagulants; R00.0 Tachycardia, unspecified; Z91.14 Patient's other noncompliance with medication regimen; H93.12 Tinnitus, left ear; D50.0 Iron deficiency anemia secondary to blood loss (chronic); E87.6 Hypokalemia; Z79.899 Other long term (current) drug therapy
CPT/HCPCS: 36415; 70450; 70496; 70498; 70551; 71275; 80048; 80053; 82607; 82728; 82746; 83540; 83550; 83735; 84443; 85014; 85018; 85025; 85027; 85380; 93005; 93306; 93970; 95816; 96361; 96374; 96375; 97161; 97165; 99285; A9270; C9803; G0378; J1200; J1885; J2765; J7030; Q9967; U0003; U0005

== ENCOUNTER 2022-03-10 00:32 | Emergency (ER) | payer OTHER, SELFPAY ==
--- NOTE | ~2022-03-10 | XR_ITS ---
EXAMINATION: XR chest 1V portable 03/10/2022 01:02 INDICATION: Chest pain PROCEDURE: 2 view chest COMPARISON: No prior studies for comparison. FINDINGS: The lungs are clear. The cardiomediastinal silhouette is within normal limits. There are no pleural effusions. There is no pneumothorax suspected. IMPRESSION: 1: NO ACUTE CARDIOPULMONARY DISEASE. Reviewed, dictated and finalized at location A.
--- NOTE | 2022-03-10 00:39 | PC.NURSE ---
Pt to the bathroom at this time.
[2022-03-10 00:41] VITALS: BP 125/87; PULSE 101; RESP 18; O2SAT 99
--- NOTE | 2022-03-10 00:47 | ECG_ITS ---
Measurements Intervals [place] Rate: 97 P: 63 WI: 149 QRS: 0 QRSD: 85 T: 28 QT: 366 QTc: 467 Interpretive Statements SINUS RHYTHM VOLTAGE CRITERIA FOR LVH BORDERLINE T WAVE ABNORMALITY- INFERIOR LEADS BORDERLINE ECG Electronically Signed On 03-10-2022 6:34:58 CDT by Samuel Stover D.O.
[2022-03-10 00:48] VITALS: PULSE 95
[2022-03-10 00:49] VITALS: BP 130/93; PULSE 94; RESP 18; O2SAT 99
[2022-03-10 01:01] LABS: Basophils Percent Auto 0.6 % (0.2-1.2); Eosinophils Absolute Auto 0.2 K/mm3 (0-0.3); Eosinophils Percent Auto 2.6 % (0-4.4); Hematocrit 36.5 % (37.0-47.0); Hemoglobin 11.3 g/dL (12.0-15.0); Immature Granulocyte Absolute 0.01 K/mm3 (0.00-0.031); Immature Granulocyte Percent A 0.2 % (0-0.5); Lymphocytes Absolute Auto 2.04 K/mm3 (0.9-3.2); Lymphocytes Percent Auto 30.6 % (18.3-44.2); Mean Corpuscular Volume 83.9 fl (80-100); Mean Platelet Volume 9.2 fl (7.4-10.4); Monocytes Absolute Auto 0.5 K/mm3 (0.1-0.6); Monocytes Percent Auto 7.8 % (2.6-8.5); Neutrophils Absolute Auto 3.9 K/mm3 (1.3-6.7); Neutrophils Percent Auto 58.2 % (45.5-73.1); Platelet Count Result 254 k/mm3 (150-375); Red Blood Count 4.35 M/mm3 (4.2-5.4); White Blood Count 6.7 K/mm3 (4.5-10.0)
[2022-03-10 01:02] LABS: Appearance Urine Clear (Clear); Bilirubin Urine Negative (Negative); Blood Urine Negative (Negative); Color Urine Yellow (Yellow); Glucose Urine UA Negative (Negative); Ketones Urine Negative (Negative); Leukocyte Esterase Ur Negative LEU/UL (Negative); Nitrate Urine Negative (Negative); Protein Urine Negative (Negative); Specific Grav Ur <= 1.005 (1.001-1.035); Urobilinogen Urine 0.2 mg/dL (<2.0)
[2022-03-10 01:06] LABS: Add Urine Microscopic? NO; Bacteria Urine Trace /hpf; RBC Urine 0-2 /hpf (0-2); Squamous Epithelial Cell Urine Rare /hpf (Few); WBC Urine 0-3 /hpf
[2022-03-10 01:08] LABS: Alanine Aminotransferase 14 U/L (6-35); Albumin Level 4.3 g/dL (3.5-5.1); Alkaline Phosphatase 65 U/L (38-126); Anion Gap 7 mmol/L (8-16); Aspartate Amino Transferase 21 U/L (14-36); Bilirubin,Total < 0.1 mg/dL (0.2-1.3); Blood Urea Nitrogen 8 mg/dL (7-17); Calcium 8.8 mg/dL (8.4-10.2); Carbon Dioxide 27 mmol/L (22-30); Chloride 103 mmol/L (98-107); Estimated CRCL calculation 99 ml/min; Estimated Glomerular Filt Rate > 60; Glucose 121 mg/dL (65-110); Potassium 3.3 mmol/L (3.4-5.0); Sodium 137 mmol/L (137-145)
[2022-03-10] MEDS: SODIUM CHLORIDE 0.9% IV 500 ML 999 ML IV CONT (01:09)
[2022-03-10 01:19] LABS: Troponin I < 0.012 ng/mL (0.000-0.034)
[2022-03-10 01:31] LABS: D Dimer 0.33 ug/mL (<0.48)
--- NOTE | 2022-03-10 01:51 | ED.CHESTPAIN ---
HPI - Chest Pain General Chief Complaint: Chest Pain Stated Complaint: palpitations, chest pain Time Seen by Provider: 03/10/22 00:38 Source: patient Mode of arrival: ambulatory Limitations: no limitations History of Present Illness HPI narrative: 41-year-old with a history of CVA s/p PFO closure here with complaints of chest discomfort on and off for 1 week and since yesterday she states that her heart rate is in 130s. She denies any fever or chills. No history of shortness of breath. She states that a week ago she had nausea and vomiting which subsided on its own. MD complaint: chest pain Onset (ago): day(s) (1) Pain location: left chest Pain radiation: none Severity: moderate Quality: aching Relieving factors: nothing Exacerbating factors: nothing Risk Factors Coronary artery disease risk factors: none Thoracic aortic dissection risk factors: none Related Data Home Medications Medication Instructions Recorded Confirmed amitriptyline 25 mg tablet 25 mg PO HS 10/16/21 10/16/21 apixaban 5 mg tablet (Eliquis) 5 mg PO DAILY 10/16/21 10/16/21 cetirizine 10 mg tablet 10 mg PO DAILY 10/16/21 10/16/21 diphenhydramine HCl 25 mg capsule 25 mg PO PRN PRN Headache 10/16/21 10/16/21 (Banophen) fluticasone propionate 50 1 spray intranasal PRN PRN 10/16/21 10/16/21 mcg/actuation nasal Congestion spray,suspension prochlorperazine maleate 10 mg 10 mg PO PRN PRN Headache 10/16/21 10/16/21 tablet ubrogepant 50 mg tablet (Ubrelvy) 50 mg PO PRN PRN Migraine Headache 10/16/21 10/16/21 Allergies Allergy/AdvReac Type Severity Reaction Status Date / Time atorvastatin Allergy Unknown Verified 03/10/22 00:53 tramadol Allergy Unknown Verified 03/10/22 00:53 Review of Systems Review of Systems: All systems reviewed & are unremarkable except as noted in HPI and below Constitutional: Constitutional: Reports no additional constitutional complaints Eyes: Eyes: Reports no additional eye complaints ENT: Reports system reviewed and no additional complaints, except as documented Cardiovascular: Cardiovascular: Reports as per HPI Respiratory: Respiratory: Reports no additional respiratory complaints Gastrointestinal: Gastrointestinal: Reports no additional gastrointestinal complaints Musculoskeletal: Musculoskeletal: Reports no additional musculoskeletal complaints Integumentary/Breasts: Skin/Breast: Reports system reviewed and no additional complaints, except as docu Neurologic: Reports system reviewed and no additional complaints, except as documented PMFSH Past Medical History Medical History Asthma Chronic anemia Depression with anxiety Ischemic stroke (2011) At age 31 attributed to PFO (loop recorder ruled out cardiac dysrhythmia) status post tPA with hemorrhagic conversion requiring craniotomy. Migraine Polycystic ovarian syndrome Pulmonary embolism Surgical History Surgical History History of craniotomy (2011) History of dilation and curettage History of hernia repair History of loop recorder Status post explantation in 2019. Family History Family History Grandparent Cancer Other Breast cancer Mother Diabetes mellitus Sibling High cholesterol Father High cholesterol Social History Social History Social History: Surrogate decision maker: Mary Lee, mother. Code status: Full code. Smoking status: Never smoker Alcohol intake: never Substance use: never Additional living arrangements comments: The patient lives in [place] Exam Narrative: GENERAL: Well-appearing, well-nourished, and in no acute distress. HEAD: Normocephalic, atraumatic. EYES: PERRLA and EOMI.. NECK: Supple. CHEST: Clear to auscultation. No respiratory distress. HEART: Regular rate and rhythm. No
[2022-03-10 02:06] VITALS: BP 115/82; PULSE 78; RESP 18; O2SAT 99
== END 2022-03-10 02:06 | disposition home or self-care (01) ==
PROVIDERS: Emergency Provider Family Medicine
DX: R00.0 Tachycardia, unspecified (principal); R07.89 Other chest pain; J45.909 Unspecified asthma, uncomplicated
CPT/HCPCS: 36415; 71045; 80053; 81003; 84484; 85025; 85380; 93005; 96360; 99284; J7040

== ENCOUNTER 2023-07-01 08:44 | Emergency (ER) | payer OTHER, SELFPAY ==
[2023-07-01 08:46] VITALS: BP 139/84; PULSE 98; RESP 16; TEMP 36.7; O2SAT 98
--- NOTE | 2023-07-01 09:12 | ED.GENADULT ---
HPI - General Adult General Chief complaint: Extremity Problem,Nontraumatic Stated complaint: bilat. lower leg pain Time Seen by Provider: 07/01/23 08:59 History of Present Illness HPI narrative: Mary Lozano is a 42 y/o female who presents with reports of waking up today and noticed she had some pain to both of her legs from the knees down. She adds that she is currently being treated for a URI with antibiotics she started about a week ago and she wants to make sure she isn't having a reaction to the antibiotics. She also adds that since this morning her symptoms are improving, she is having less pain and ambulating well. Related Data Home Medications Medication Instructions Recorded Confirmed amitriptyline 25 mg tablet 25 mg PO HS 10/16/21 10/16/21 apixaban 5 mg tablet (Eliquis) 5 mg PO DAILY 10/16/21 10/16/21 cetirizine 10 mg tablet 10 mg PO DAILY 10/16/21 10/16/21 diphenhydramine HCl 25 mg capsule 25 mg PO PRN PRN Headache 10/16/21 10/16/21 (Banophen) fluticasone propionate 50 1 spray intranasal PRN PRN 10/16/21 10/16/21 mcg/actuation nasal Congestion spray,suspension prochlorperazine maleate 10 mg 10 mg PO PRN PRN Headache 10/16/21 10/16/21 tablet ubrogepant 50 mg tablet (Ubrelvy) 50 mg PO PRN PRN Migraine Headache 10/16/21 10/16/21 Allergies Allergy/AdvReac Type Severity Reaction Status Date / Time atorvastatin Allergy Unknown Verified 07/01/23 08:48 naproxen Allergy Unknown Verified 07/01/23 08:48 tramadol Allergy Unknown Verified 07/01/23 08:48 Review of Systems Review of Systems: CONSTITUTIONAL: Denies fever, chills, or sweats. EYES: Denies visual changes, redness, or discharge. ENT: Denies rhinorrhea, congestion, sore throat, or otalgia. CARDIOVASCULAR: Denies chest pain, palpitations, or edema. RESPIRATORY: Denies cough or dyspnea. GASTROINTESTINAL: Denies abdominal pain, nausea, vomiting, or diarrhea. GENITOURINARY: Denies dysuria or hematuria. SKIN: Denies rash or itching. MUSCULOSKELETAL: Denies back pain, joint pain, or myalgia. NEUROLOGIC: Denies headache, numbness, dizziness, or weakness. PSYCHIATRIC: Denies anxiety or depression. [facility] Past Medical History Medical History Asthma Chronic anemia Depression with anxiety Ischemic stroke (2011) At age 31 attributed to PFO (loop recorder ruled out cardiac dysrhythmia) status post tPA with hemorrhagic conversion requiring craniotomy. Migraine Polycystic ovarian syndrome Pulmonary embolism Surgical History Surgical History History of craniotomy (2011) History of dilation and curettage History of hernia repair History of loop recorder Status post explantation in 2019. Family History Family History Grandparent Cancer Other Breast cancer Mother Diabetes mellitus Sibling High cholesterol Father High cholesterol Social History Social History Social History: Surrogate decision maker: Mary Lee, mother. Code status: Full code. Smoking status: Never smoker Alcohol intake: never Substance use: never Additional living arrangements comments: The patient lives in [place] Exam Narrative: GENERAL: Well-appearing, well-nourished, and in no acute distress. HEAD: Normocephalic, atraumatic. EYES: PERRLA and EOMI. ENT: Nares clear, no rhinorrhea or epistaxis. Mucous membranes moist. Oropharynx without tonsillar hypertrophy exudate or other lesions. NECK: Supple. No adenopathy or masses. No carotid bruits or JVD CHEST: Clear to auscultation. No respiratory distress. No wheezes rales or rhonchi HEART: Regular rate and rhythm. No murmur heard. Normal peripheral pulses. ABDOMEN: Soft, nontender, nondistended, normal active bowel sounds. EXTREMITIES: Normal range of motion. No edema. SKIN: Warm, dry, n
[2023-07-01] MEDS: CYCLOBENZAPRINE HCL 10 MG TABLET PO (09:15)
[2023-07-01 10:09] VITALS: BP 132/86; PULSE 93; RESP 18; O2SAT 100
== END 2023-07-01 10:10 | disposition home or self-care (01) ==
LOC: ANHED 09:55
PROVIDERS: Emergency Provider Nurse Practitioner Family
DX: M62.831 Muscle spasm of calf (principal); J45.909 Unspecified asthma, uncomplicated; F41.8 Other specified anxiety disorders; Z86.711 Personal history of pulmonary embolism
CPT/HCPCS: 99283; A9270